=== PATIENT | female | born 1975 | race African-American/Black ===

== ENCOUNTER 2025-02-25 09:02 | Inpatient (IN) | payer OTHER ==
[~2025-02-25] VITALS: Ht 154.9 cm; Wt 67.1 kg
[2025-02-25 09:21] LABS: COVID AG,FIA SOURCE NASAL SWAB
[2025-02-25 09:34] LABS: ALCOHOL, URINE DRUG SCREEN POSITIVE (NEGATIVE); AMPHET/METH SCREEN,URINE NEGATIVE (NEGATIVE); BARBITURATE SCREEN, URINE NEGATIVE (NEGATIVE); CANNABINOID SCREEN,URINE NEGATIVE (NEGATIVE); COCAINE SCREEN,URINE NEGATIVE (NEGATIVE); METHADONE SCREEN, URINE NEGATIVE (NEGATIVE)
[2025-02-25 09:38] LABS: PLATELET COUNT (AUTO) 416 K/uL (150-450); RED BLOOD CELL COUNT(AUTO) 4.80 MIL/uL (4.00-5.20); RED CELL DISTRIBUTION WIDTH 13.8 % (11.5-14.5); WHITE BLOOD COUNT (AUTO) 7.3 K/uL (4.5-11.0)
[2025-02-25 09:39] LABS: SARS-COV2 (COVID) ANTIGEN,FIA Negative (Negative)
[2025-02-25 09:45] LABS: CALCIUM, TOTAL 9.3 mg/dL (8.8-10.5); CREATININE 0.71 mg/dL (0.60-1.30); GLOMERULAR FILTR. RATE CALC > 60 mL/min (>60); GLUCOSE,RANDOM 96 mg/dL (70-110); SODIUM SERUM 143 mmol/L (136-145); UREA NITROGEN, BLOOD 7 mg/dL (7-18)
[2025-02-25 09:47] LABS: PH,URINE DRUG SCREEN 6.5 (5.0-8.0)
[2025-02-25] MEDS ORDERED: TUBERCULIN, PURIFIED PROTEIN DERIVATIVE 5 TU/0.1 ML SYRINGE ID ONE ×2 (15:45→22:30)
[2025-02-25] MEDS ORDERED: LOPERAMIDE HCL 2 MG CAPSULE PO PRN (15:45)
[2025-02-25] MEDS ORDERED: GuaiFENesin/D-METHORPHAN [SUGAR-FREE] 200-20MG/10 ML SYRUP UDCUP PO PRN (15:45)
[2025-02-25] MEDS ORDERED: MAG HYDROX/ALUMINUM HYD/SIMETH ES 30 ML SUSPENSION UDCUP PO PRN (15:45)
[2025-02-25] MEDS ORDERED: ACETAMINOPHEN 325 MG TABLET PO PRN (15:45)
[2025-02-25] MEDS ORDERED: PROMETHAZINE HCL 25 MG TABLET PO PRN (15:45)
[2025-02-25] MEDS ORDERED: MAGNESIUM HYDROXIDE SUSPENSION 30 ML UDCUP PO PRN (15:45)
[2025-02-25] MEDS: CYANOCOBALAMIN 1,000 MCG/ML VIAL IM ONE (15:55)
[2025-02-25 20:30] VITALS: BP 119/70; PULSE 77; RESP 18; TEMP 98.1; O2SAT 100
[2025-02-25] MEDS: MIRTAZAPINE 15 MG TABLET PO SCH (20:34)
[2025-02-25] MEDS: MELATONIN 5 MG TABLET PO SCH (20:34)
[2025-02-25] MEDS: THIAMINE 100 MG TABLET PO SCH (20:34)
[2025-02-25 20:44] VITALS: BP 119/70; PULSE 77; RESP 18; TEMP 98.1; O2SAT 100
[2025-02-25 21:30] VITALS: BP 100/63; PULSE 78; RESP 19; TEMP 98.3; O2SAT 98
[2025-02-25 22:30] VITALS: BP 110/61; PULSE 70; RESP 18; TEMP 98; O2SAT 97
[2025-02-25 23:30] VITALS: BP 105/60; PULSE 71; RESP 18; TEMP 98.4; O2SAT 98
[2025-02-26] VITALS (9 sets, daily range): BP systolic 100–120; BP diastolic 60–79; PULSE 74–100; RESP 16–18; TEMP 98–99.1; O2SAT 98–100
[2025-02-26] MEDS: NALTREXONE HCL 50 MG TABLET PO SCH (08:19)
[2025-02-26] MEDS: FOLIC ACID 1 MG TABLET PO SCH (08:19)
[2025-02-26] MEDS: MULTIVITAMINS WITH MINERALS, THERAPEUTIC TABLET PO SCH (08:19)
[2025-02-26] MEDS: TUBERCULIN, PURIFIED PROTEIN DERIVATIVE 5 TU/0.1 ML SYRINGE ID ONE (16:32)
[2025-02-27 08:21] VITALS: BP 111/63; PULSE 68; RESP 17; TEMP 98.4; O2SAT 98
[2025-02-27 09:23] LABS: CHOL/HDL RATIO 2.7 (3.9-5.7); HCG,QUANTITATIVE 2.0 mIU/mL (0-6); LDL CHOL (CALC.) 110.0 mg/dL (0-130)
[2025-02-27] MEDS ORDERED: MIRT-89 PO (16:54)
[2025-02-27] MEDS ORDERED: PARO-37 PO (16:54)
[2025-02-27] MEDS ORDERED: MELA5TAB40 PO (16:54)
[2025-02-27] MEDS ORDERED: BUPR-49 PO (16:54)
[2025-02-27 18:02] VITALS: BP 111/63; PULSE 68; RESP 18; TEMP 98.4; O2SAT 98
[2025-02-27 19:58] VITALS: BP 103/64; PULSE 87; RESP 18; TEMP 98.6
[2025-02-28 08:20] VITALS: BP 112/81; PULSE 97; RESP 17; TEMP 99; O2SAT 100
[2025-02-28] MEDS: BuPROPion HCL XL 150 MG ER TABLET PO SCH (08:42)
[2025-02-28] MEDS ORDERED: LOPERAMIDE HCL 2 MG CAPSULE PO PRN (15:45)
== END 2025-02-28 14:45 | disposition home or self-care (01) | DRG 885 ==
LOC: EMS 09:02 → B2S 17:24
PROVIDERS: ADMIT Psychiatry & Neurology Psychiatry; ATTEND Psychiatry & Neurology Psychiatry
PROC: GZHZZZZ Group Psychotherapy (ICD-10-PCS; principal; 2025-02-25)
PROC: GZ51ZZZ Individual Psychotherapy, Behavioral (ICD-10-PCS; 2025-02-25)
DX: F32.2 Major depressive disorder, single episode, severe without psychotic features (principal); R45.851 Suicidal ideations; F41.9 Anxiety disorder, unspecified; Z20.822 Contact with and (suspected) exposure to COVID-19
CPT/HCPCS: 80048; 80061; 80307; 83036; 84702; 84703; 85025; 86592; 99285; G0480; 36415-L1; 36415-TC; 90749; Z7502; Z7610

== ENCOUNTER 2025-03-17 14:12 | Inpatient (IN) | payer OTHER ==
[~2025-03-17] VITALS: Ht 165.1 cm; Wt 67.2 kg
[~2025-03-17 14:12] MED LIST: BUPR-49 PO; MELA5TAB40 PO; MIRT-89 PO; PARO-37 PO
[2025-03-17 14:52] LABS: PLATELET COUNT (AUTO) 406 K/uL (150-450); RED BLOOD CELL COUNT(AUTO) 4.53 MIL/uL (4.00-5.20); RED CELL DISTRIBUTION WIDTH 14.1 % (11.5-14.5); WHITE BLOOD COUNT (AUTO) 8.5 K/uL (4.5-11.0)
[2025-03-17] MEDS: SODIUM CHLORIDE 0.9% 1,000 ML IV ONE ×2 (14:53→17:16)
[2025-03-17] MEDS: CHARCOAL/SORBITOL 50 GM/240 ML SUSPENSION PO ONE (14:53)
[2025-03-17 15:01] LABS: CALCIUM, TOTAL 8.9 mg/dL (8.8-10.5); CREATININE 0.65 mg/dL (0.60-1.30); GLOMERULAR FILTR. RATE CALC > 60 mL/min (>60); GLUCOSE,RANDOM 109 mg/dL (70-110); SODIUM SERUM 137 mmol/L (136-145); UREA NITROGEN, BLOOD 7 mg/dL (7-18)
[2025-03-17 15:08] LABS: ASPARTATE AMINOTRANSFERASE 16 U/L (15-37); TOTAL PROTEIN, SERUM 7.5 g/dL (6.4-8.2)
[2025-03-17 15:37] LABS: ALCOHOL, BLOOD (SERUM) 61 mg/dL (0-10)
[2025-03-17] MEDS ORDERED: ZOLPIDEM TARTRATE 10 MG TABLET PO PRN (15:45)
[2025-03-17] MEDS: POTASSIUM CHL 10 MEQ/WATER 50 ML IV SCH (15:49)
[2025-03-17] MEDS ORDERED: MORPHINE SULFATE 4 MG/ML SYRINGE IVP PRN (16:45)
[2025-03-17] MEDS ORDERED: ACETAMINOPHEN 325 MG TABLET PO PRN (16:45)
[2025-03-17] MEDS ORDERED: POTASSIUM CHL 10 MEQ/WATER 50 ML IV PRN (16:45)
[2025-03-17] MEDS ORDERED: MAGNESIUM HYDROXIDE SUSPENSION 30 ML UDCUP PO PRN (16:45)
[2025-03-17] MEDS ORDERED: POTASSIUM CHLORIDE 20 MEQ ER TABLET PO PRN (16:45)
[2025-03-17] MEDS ORDERED: ZOLPIDEM TARTRATE 5 MG TABLET PO PRN (16:45)
[2025-03-17] MEDS ORDERED: HYDROCODONE/ACETAMINOPHEN 5-325 MG TABLET PO PRN (16:45)
[2025-03-17] MEDS ORDERED: ONDANSETRON HCL 4 MG/2 ML VIAL IVP PRN (16:45)
[2025-03-17] MEDS ORDERED: BISACODYL 10 MG RECTAL RECTAL SUPPOSITORY PR PRN (16:45)
[2025-03-17 19:29] VITALS: BP 125/68; PULSE 85; RESP 17; TEMP 99; O2SAT 98
[2025-03-17] MEDS: DOCUSATE SODIUM 100 MG CAPSULE PO SCH (21:00)
[2025-03-17] MEDS: MELATONIN 5 MG TABLET PO SCH (21:06)
[2025-03-18] MEDS: HEPARIN SODIUM,PORCINE 5,000 UNITS/ML VIAL SQ SCH
[2025-03-18 00:45] VITALS: BP 114/59; PULSE 74; RESP 18; TEMP 98.8; O2SAT 97
[2025-03-18 03:10] VITALS: BP 109/55; PULSE 86; RESP 17; TEMP 98.4; O2SAT 97
[2025-03-18 06:34] LABS: PLATELET COUNT (AUTO) 377 K/uL (150-450); RED BLOOD CELL COUNT(AUTO) 4.24 MIL/uL (4.00-5.20); RED CELL DISTRIBUTION WIDTH 14.2 % (11.5-14.5); WHITE BLOOD COUNT (AUTO) 7.6 K/uL (4.5-11.0)
[2025-03-18 06:50] LABS: CALCIUM, TOTAL 8.5 mg/dL (8.8-10.5); CREATININE 0.58 mg/dL (0.60-1.30); GLOMERULAR FILTR. RATE CALC > 60 mL/min (>60); GLUCOSE,RANDOM 75 mg/dL (70-110); SODIUM SERUM 139 mmol/L (136-145); UREA NITROGEN, BLOOD 6 mg/dL (7-18)
[2025-03-18] MEDS: PANTOPRAZOLE SODIUM 40 MG DR TABLET PO SCH (08:39)
[2025-03-18 08:45] VITALS: BP 104/57; PULSE 93; RESP 18; TEMP 98.2; O2SAT 100
[2025-03-18 12:20] VITALS: BP 130/69; PULSE 81; RESP 19; TEMP 98.8; O2SAT 97
[2025-03-18] MEDS: CITALOPRAM HYDROBROMIDE 20 MG TABLET PO SCH (13:28)
[2025-03-18] MEDS: BuPROPion HCL XL 150 MG ER TABLET PO SCH (13:28)
[2025-03-18 16:34] VITALS: BP 95/51; PULSE 84; RESP 18; TEMP 98.4; O2SAT 99
[2025-03-18 19:57] VITALS: BP 114/61; PULSE 73; RESP 16; TEMP 98.2; O2SAT 98
[2025-03-19] VITALS (7 sets, daily range): BP systolic 103–131; BP diastolic 62–78; PULSE 67–85; RESP 16–18; TEMP 98.1–98.8; O2SAT 96–100
[2025-03-19 06:17] LABS: PLATELET COUNT (AUTO) 389 K/uL (150-450); RED BLOOD CELL COUNT(AUTO) 4.33 MIL/uL (4.00-5.20); RED CELL DISTRIBUTION WIDTH 14.4 % (11.5-14.5); WHITE BLOOD COUNT (AUTO) 6.6 K/uL (4.5-11.0)
[2025-03-19 06:27] LABS: CALCIUM, TOTAL 8.5 mg/dL (8.8-10.5); CREATININE 0.58 mg/dL (0.60-1.30); GLOMERULAR FILTR. RATE CALC > 60 mL/min (>60); GLUCOSE,RANDOM 92 mg/dL (70-110); SODIUM SERUM 140 mmol/L (136-145); UREA NITROGEN, BLOOD 8 mg/dL (7-18)
[2025-03-19 17:20] LABS: INFLUENZA A-RTPCR,COMBO NEGATIVE (NEGATIVE); INFLUENZA B-RTPCR,COMBO NEGATIVE (NEGATIVE); RESPIRATORY SYNCYTIAL VRS-PCR NEGATIVE (NEGATIVE); SARS COVID19 RTPCR, COMBO NEGATIVE (NEGATIVE)
[2025-03-20 04:40] VITALS: BP 125/73; PULSE 76; RESP 18; TEMP 98; O2SAT 100
[2025-03-20 06:12] LABS: PLATELET COUNT (AUTO) 416 K/uL (150-450); RED BLOOD CELL COUNT(AUTO) 4.60 MIL/uL (4.00-5.20); RED CELL DISTRIBUTION WIDTH 14.3 % (11.5-14.5); WHITE BLOOD COUNT (AUTO) 7.4 K/uL (4.5-11.0)
[2025-03-20 06:35] LABS: CALCIUM, TOTAL 8.6 mg/dL (8.8-10.5); CREATININE 0.82 mg/dL (0.60-1.30); GLOMERULAR FILTR. RATE CALC > 60 mL/min (>60); GLUCOSE,RANDOM 114 mg/dL (70-110); SODIUM SERUM 140 mmol/L (136-145); UREA NITROGEN, BLOOD 7 mg/dL (7-18)
[2025-03-20 08:15] VITALS: BP 129/71; PULSE 87; RESP 16; TEMP 98.2; O2SAT 96
[2025-03-20 12:26] VITALS: BP 119/79; PULSE 81; RESP 18; TEMP 98.4; O2SAT 98
[2025-03-20 16:12] VITALS: BP 129/86; PULSE 78; RESP 16; TEMP 99; O2SAT 98
== END 2025-03-20 18:40 | DRG 918 ==
LOC: EMS 14:13 → EDH 16:32 → 5S 19:21
PROVIDERS: ADMIT Internal Medicine; ATTEND Internal Medicine
DX: T43.212A Poisoning by selective serotonin and norepinephrine reuptake inhibitors, intentional self-harm, initial encounter (principal); F33.2 Major depressive disorder, recurrent severe without psychotic features; E87.6 Hypokalemia; Z79.899 Other long term (current) drug therapy; Z91.51 Personal history of suicidal behavior; Y92.89 Other specified places as the place of occurrence of the external cause
CPT/HCPCS: 80048; 80076; 83735; 85025; 87637; 93005; 96361; 96365; 99285; G0480; G0481; J1644; J3480; 36415-L1; 36415-TC